=== PATIENT | male | born 1985 | race Caucasian/White ===

== ENCOUNTER 2017-08-29 23:04 | Emergency (ER) | payer BC ==
[~2017-08-29] VITALS: Ht 190.5 cm; Wt 98.9 kg
[~2017-08-29 23:04] MED LIST: AZIT250T74 PO; IBUP400T20 PO; LORA-392 PO; PRED5SOL PO; ULTR50TA PO
[2017-08-29 23:08] VITALS: BP 162/94; PULSE 89; RESP 14; TEMP 98.7; O2SAT 97
[2017-08-29] MEDS ORDERED: TETANUS/DIPHTHERIA TOXOID ADULT 0.5 ML VIAL IM ONE (23:30)
--- NOTE | 2017-08-29 23:47 | RADRPT ---
EXAM DATE/TIME: 08/29/2017 23:31 [place] COMPARISON: No previous studies available for comparison. INDICATIONS : Left hand, fifth digit pain and swelling after being cut by a knife. MEDICAL HISTORY : None. SURGICAL HISTORY : None. ENCOUNTER: Initial ACUITY: 4 - 6 days PAIN SCORE: 5/10 LOCATION: Left hand, fifth digit. FINDINGS: Examination of the fifth digit of the left hand demonstrates no evidence of fracture or dislocation. No radiopaque foreign bodies are seen. The soft tissues are intact. CONCLUSION: 1. No acute findings. Jaren De Oliveira MD on August 29, 2017 at 23:43 Board Certified Radiologist. This report was verified electronically.
--- NOTE | 2017-08-29 23:48 | PD ---
HPI Chief Complaint: Skin Problem Time Seen by Provider: 23:28 Travel History International Travel<30 days: No Contact w/Intl Traveler<30days: No Traveled to known affect area: No History of Present Illness HPI 31-year-old male presents to the emergency department by private transportation for evaluation of left fifth finger injury. Patient reports approximately one week ago while using a knife cutting some food in the kitchen he sustained a laceration across the proximal palmar aspect of the left fifth finger just proximal to the PIP. Patient states that he did not seem to feel this was a deep injury and cleansed the wound and it has been healing nicely but more recently has noted swelling to the finger as well as decreased range of motion of the digit and pain at the base of the digit. Patient does not know his tetanus status. Patient also has some superficial abrasions secondary to injuries that were sustained while he was working on his bicycle affecting the dorsal aspect of his right hand. Patient has had skin infection in the past but does not report any history of MRSA infection. Patient is right-handed. Patient's had no fever or chills. Patient reports that he has decreased range of motion of the digits of both hands. Patient is concerned of having recurrent skin infection. No ascending erythema no axillary lymphadenopathy and patient is not diabetic. PFSH Past Medical History Narrative Medical Pericarditis, pericardial effusion; marijuana use; nursing notes reviewed Cancer: No Cardiovascular Problems: Yes (FLUID AROUND HEART) Diminished Hearing: No Endocrine: No Genitourinary: No Immune Disorder: No Musculoskeletal: Yes [place] [place] Neurologic: No Psychiatric: No Reproductive: No Respiratory: No Immunizations Current: Yes Tetanus Vaccination: Unknown Influenza Vaccination: No Past Surgical History Abdominal Surgery: No AICD: No Arteriovenous Shunt: No Cardiac Surgery: No Ear Surgery: No Endocrine Surgery: No Eye Surgery: No Genitourinary Surgery: No Gynecologic Surgery: No Insulin Pump: No Joint Replacement: No Oral Surgery: No Pacemaker: No Thoracic Surgery: No Social History Alcohol Use: Yes (RARE) Tobacco Use: Yes (3-5 DAILY) Substance Use: Yes (marijuana ) Allergies-Medications (Allergen,Severity, Reaction): Coded Allergies: No Known Allergies (Unverified Adverse Reaction, Unknown, 08/29/17) Reported Meds & Prescriptions Reported Meds & Active Scripts Active Ibuprofen 400 Mg Tab 400 Mg PO Q6H PRN 14 Days Ativan (Lorazepam) 0.5 Mg Tab 0.5 Mg PO Q8HR Ultram (Tramadol HCl) 50 Mg Tab 50 Mg PO Q6HR PRN Prednisone 5 Mg/5 Ml Carina 5 Mg PO DAILY 15 Days Handwritten Rx written for Prednisone tapering dose. Use the Handwritten Rx. Zithromax (Azithromycin) 250 Mg Tab 500 Mg PO DAILY Review of Systems Except as stated in HPI: all other systems reviewed are Neg Physical Exam Narrative GENERAL: Well-nourished male in acute distress no respiratory distress SKIN: Warm and dry. Right hand dorsum superficial abrasions and partially healed lacerations over the second third and fifth MCP's with intact range of motion on flexion and extension and neurovascular tendon intact with brisk capillary refill less than 2 seconds; left hand patient initially demonstrates normal flexion of third to fifth digits as well as from flexion but inability to perform left index finger flexion however subsequently is able to perform left index finger flexion as well as normal flexion cascade with hand at rest and then identifies inability to perform PIP/DIP and MCP flexion of the fifth digit was isolated exam of each joint affecting the fifth digit. Patient's capillary refill is brisk and less than 2 seconds sensation is intact minimal soft tissue swelling healed superficial abrasion laceration across the palmar aspect of the proximal fifth digit just proximal to the PIP. No purulent drainage. Patient complains of increased tenderness with palpation. No deformity noted. No crepitus. No ecchymosis or eschar. No open wound. MUSCULOSKELETAL: No cyanosis, or edema. Data Data Last Documented VS Vital Signs Date Time Temp Pulse Resp B/P (MAP) Pulse Ox O2 Delivery O2 Flow Rate FiO2 08/29/17 23:20 18 08/29/17 23:08 98.7 89 162/94 (116) 97 Orders Orders Tetanus/Diphtheria Tox Adult (Tetanus/Di (08/29/17 23:30) Finger ([id number]) (08/29/17 ) Cephalexin (Keflex) (08/30/17 00:00) Clindamycin (Cleocin) (08/30/17 00:00) Ibuprofen (Motrin) (08/30/17 00:00) MDM Medical Decision Making Medical Screen Exam Complete: Yes Emergency Medical Condition: Yes Medical Record Reviewed: Yes Interpretation(s) Vital Signs Date Time Temp Pulse Resp B/P (MAP) Pulse Ox O2 Delivery O2 Flow Rate FiO2 08/29/17 23:20 18 08/29/17 23:08 98.7 89 14 162/94 (197) 97 Differential Diagnosis Flexor tendon injury, tenosynovitis, cellulitis, infected abrasion Narrative Course 31-year-old male with one week of multiple superficial abrasions with scant purulent drainage to the dorsum of the right hand and mild swelling of the left fifth digit with soft tissue tenderness and without deformity or ecchymosis erythema increased warmth but has noted decreased flexion of the left fifth digit presents for further evaluation. No fever no chills no ascending erythema no axillary lymphadenopathy patient is not diabetic and tetanus status is unknown. On direct exam patient has inability to demonstrate a normal flexion cascade of the digits but with individual isolation of the flexor tendon at the DIP IP and fifth MCP patient demonstrates inability to perform DIP flexion. Patient has unopposed extension. Capillary refill is brisk and less than 2 seconds per digit and sensory exam is intact. Concern for partial or complete flexor tendon injury of the proximal fifth left digit/finger. Imaging identifies no evidence for soft tissue gas or radiopaque foreign body and clearly no bony abnormality. Patient will be placed on oral antibiotic and given referral to hand surgery for close follow-up. Patient's tetanus status updated for superficial abrasion sustained to the dorsum of the right hand. Patient is encouraged also to follow-up with primary care provider and return to the emergency department for any concerns or change in condition. Diagnosis Primary Impression: Laceration of little finger Qualified Codes: S61.217A - Laceration without foreign body of left little finger without damage to nail, initial encounter Additional Impressions: Cellulitis of left little finger Finger laceration involving tendon Referrals: Hand Surgeon call for appointment [employer] Engineer Hand surgeon --- Dr Barfield Patient Instructions: General Instructions Additional Instructions: Monitor temperature every 4 hours with thermometer and administer as needed acetaminophen or ibuprofen per package directions Complete course of antibiotic as prescribed Follow-up with hand surgeon regarding left fifth finger injury Return to the emergency room for fever pain or any concerns Med/Other Pt SpecificInfo: Prescription(s) given Scripts Cephalexin (Keflex) 500 Mg Capsule 500 MG PO Q6H for Infection for 10 Days, #40 CAP 0 Refills Prov: Pamela Pérez MD 08/30/17 Clindamycin (Clindamycin) 150 Mg Cap 300 MG PO Q6H for Infection for 7 Days, #56 CAP 0 Refills Prov: Pamela Pérez MD 08/30/17 Disposition: 01 DISCHARGE HOME Condition: Stable Pamela Pérez MD Aug 29, 2017 23:48
[2017-08-30] MEDS ORDERED: CLINDAMYCIN 150 MG CAP PO ONE
[2017-08-30] MEDS ORDERED: IBUPROFEN 800 MG TAB PO ONE
[2017-08-30] MEDS ORDERED: CEPHALEXIN MONOHYDRATE 500 MG CAP PO ONE
[2017-08-30 00:20] VITALS: BP 163/87; PULSE 80; RESP 16; O2SAT 97
[2017-08-30] MEDS ORDERED: CLIN150C14 PO (00:22)
[2017-08-30] MEDS ORDERED: CEPH-460 PO (00:22)
== END 2017-08-30 00:36 | disposition home or self-care (01) ==
LOC: PHED 23:04
DX: S66.127A Laceration of flexor muscle, fascia and tendon of left little finger at wrist and hand level, initial encounter (principal); L03.012 Cellulitis of left finger; I31.9 Disease of pericardium, unspecified; F17.210 Nicotine dependence, cigarettes, uncomplicated; W26.0XXA Contact with knife, initial encounter; Z23 Encounter for immunization; Z79.899 Other long term (current) drug therapy
CPT/HCPCS: 73140; 90471; 90714